=== PATIENT | female | born 2000 | race Caucasian/White ===

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

== ENCOUNTER 2022-03-24 10:16 | Day surgery (SDC) | payer OTHER, SELFPAY ==
[2022-03-22 11:43] VITALS: BMI 23.8
[2022-03-24 11:31] VITALS: BMI 24.3
[2022-03-24 11:36] VITALS: BP 113/70; PULSE 75; RESP 20; TEMP 36.6; O2SAT 100; BMI 24.3
[2022-03-24] MEDS: LACTATED RINGERS 1,000 ML 42 ML IV (11:43)
[2022-03-24] MEDS: OXYMETAZOLINE NASAL SPRAY 15 ML 2 SPRAYS NASAL ×2 (11:45→12:47)
--- NOTE | 2022-03-24 12:02 | PM.PREOP ---
Pre-operative Note Interval Note History & Physical reviewed/Exam performed by Physician: Yes Changes to H&P: No
--- NOTE | 2022-03-24 12:03 | P.HP_ITS ---
History of Present Illness History of Present Illness Chief complaint: [facility] [place] Narrative: 21-year-old female last seen in clinic 02/15/2022 presents for persistent [id number]-right nasal obstruction, inferior turbinate hypertrophy, septal deviation, and allergic rhinitis. No interval health changes, wishes to proceed with septoplasty and inferior turbinate reduction as outpatient. Patient History Medical History Allergic rhinitis Deviated septum Nasal obstruction Nasal turbinate hypertrophy Family & Social History Tobacco & Substance use: Smoking Status Never smoker alcohol intake never Substance Use Type does not use Meds Home Medications and Allergies Home Medications Medication Instructions Recorded Confirmed Type epinephrine 0.3 mg/0.3 mL 0.3 mg IM Q5-15M PRN Anaphylaxis 03/22/22 03/22/22 History injection, auto-injector drospirenone 3 mg-ethinyl 1 tab PO DAILY 03/24/22 03/24/22 History estradiol 0.02 mg tablet (PEDRO (28)) fexofenadine 180 mg tablet 180 mg PO DAILY PRN Allergy 03/24/22 03/24/22 History Symptoms Allergies Allergy/AdvReac Type Severity Reaction Status Date / Time latex Allergy Mild rash, itchy Verified 03/24/22 11:29 Review of Systems Review of Systems Narrative: Negative except as listed in the HPI Exam Vital Signs (past 8 hours): - 03/24/22 11:36 Temperature 97.9 F Pulse Rate 75 Respiratory Rate 20 Blood Pressure 113/70 Pulse Oximetry 100 Oxygen Delivery Method Room Air Oxygen Delivery Method Room Air Narrative Exam Narrative: Well-developed well-nourished female in no acute distress. Heart regular rate and rhythm without murmur, lungs clear to auscultation bilaterally Assessment & Plan Assessment & Plan narrative: Assessment: Nasal airway obstruction, septal deviation, inferior turbinate hypertrophy, allergic rhinitis Plan: Following discussion of the material risks benefits complications and alternatives, the patient elected to proceed with septoplasty and inferior turbinate reduction as outpatient. Time Spent With Patient Critical Care time: I spent a total of [] minutes of critical care time on this patient's care today; this time is exclusive of procedural time.
--- NOTE | 2022-03-24 12:04 | P.OP_ITS ---
Operative Date/Time/Diagnoses Date of procedure: 03/24/22 Time of procedure: 13:45 Pre-op diagnosis: Nasal airway obstruction, septal deviation, inferior turbinate hypertrophy, allergic rhinitis Post-op diagnosis: same Procedure & Clinicians Procedure: 1. Septoplasty 2. Bilateral inferior turbinate reduction via intramural cautery Same procedure as scheduled: Yes Indications: [age] Year old with the above diagnoses incompletely managed with medical therapy presents for the above procedure. Following discussion of the material risks benefits complications and alternatives, the patient elected to proceed. Surgeon: Adarsh Morrison Click Yes if Unassisted: Yes Anesthesia Type: General and Local Operative Notes Findings: 3+ left septal deviation, bony and cartilaginous, LEFT significant posterior flap tear over a large bony spur, RIGHT flap entirely intact. RIGHT>LEFT ITH. Estimated Blood Loss (mL): 70 Procedure in detail: Following identification and confirmation of consent as well as preoperative Afrin nasal spray, the patient was brought to the operating room suite and placed in the supine position. General endotracheal anesthesia was administered. I infiltrated the septum widely bilaterally with 1% lidocaine 1 100,000 epinephrine followed by temporary packing with cotton with Afrin and 4% lidocaine. Following sterile prep and drape, the packing was removed and I performed a right sal-transfixion incision, elevated the right mucoperichondrial and mucoperiosteal flap. I disarticulated near the b jenn/cartilaginous junction and elevated the left mucoperiosteal flap. Deviated portions of the perpendicular plate of the ethmoid and vomer were resected, including the maxillary crest. The residual quadrilateral cartilage was further straightened by trimming it inferiorly as well as reducing the maxillary crest. A 2 mm strip of cartilage paralleling the residual 1 cm dorsal and caudal strut was resected to further straighten the quadrilateral cartilage. The hemitransfixion incision was closed with interrupted 5 0 chromic followed by a running 4 0 plain gut mattress suture to reapproximate the septal flaps. At case completion, 20/1000th of an inch silastic splints were placed bilaterally, sutured anteriorly with a single 4 0 nylon. The head of each inferior turbinate had been previously infiltrated with additional local anesthetic and a 25 gauge spinal needle was used to impale the length of the turbinate, with cautery on a setting of 15 activated on slow withdrawal over 2 passes. The turbinates were then outfractured. The procedure completed, sponge and needle counts were correct and the patient was extubated in the operating room and taken to recovery room in stable condition without known complication. Complications: none Post-operative Condition: stable Disposition: same day surgery Plan for aftercare: Nasal saline every hour while awake, begin irrigations t.i.d. tomorrow if desired. Polysporin to the nostrils at all times, Tylenol alternating with Advil for pain control, oxycodone for breakthrough pain. Elevate head of bed, no nose blowing, no straining for 2 weeks. Ice directly under the nose on the upper lip has tolerated 24-48 hours at a minimum. Follow-up in 1 week for nasal splint removal.
--- NOTE | 2022-03-24 12:40 | SUR.OPER ---
Supine on padded OR bed, head on gel doughnut, arms padded and tucked at sides, legs uncrossed, safety belt at thigh, tape over blanket over lower legs .
[2022-03-24] MEDS: LIDOCAINE 1% W/EPI 20 ML INJ (12:45)
[2022-03-24] MEDS: BACITRACIN OINT 0.9 GM PCKT 1 APPLIC TOP (12:46)
[2022-03-24] MEDS: LIDOCAINE 4% SOLN 50 ML 20 ML TOP (12:46)
[2022-03-24 13:48] VITALS: BP 116/70; PULSE 104; RESP 15; TEMP 36.3; O2SAT 99
[2022-03-24 13:53] VITALS: BP 119/70; PULSE 124; RESP 14; O2SAT 99
[2022-03-24 13:59] VITALS: BP 126/79; PULSE 116; RESP 12; O2SAT 100
[2022-03-24 14:04] VITALS: BP 140/92; PULSE 104; RESP 15; TEMP 36.3; O2SAT 100
[2022-03-24 14:07] VITALS: BP 149/90; PULSE 94; RESP 14; TEMP 36.3; O2SAT 99
== END 2022-03-24 14:36 | disposition home or self-care (01) ==
PROVIDERS: Referring Provider Otolaryngology; Visit Provider Otolaryngology
PROC: (CPT 30520; principal; 2022-03-24 11:30)
DX: J34.2 Deviated nasal septum (principal); J34.89 Other specified disorders of nose and nasal sinuses; J34.3 Hypertrophy of nasal turbinates; J30.1 Allergic rhinitis due to pollen; J30.89 Other allergic rhinitis
CPT/HCPCS: 30520; 30802; 81025; A9270; J1100; J2250; J2405; J2704; J3010